=== PATIENT | female | born 1960 | race Hispanic/Latino ===

== ENCOUNTER 2019-06-06 08:07 | Emergency (ER) | payer OTHER ==
[2019-06-06] MEDS ORDERED: KETOROLAC TROMETHAMINE 60 MG/2 ML VIAL ONE (09:28)
[2019-06-06 09:46] LABS: APPEARANCE,URINE Clear (CLEAR); BILIRUBIN,URINE Negative (NEGATIVE); COLOR,URINE Yellow (YELLOW); GLUCOSE, URINE (UA) Negative (NEGATIVE); KETONES,URINE Negative (NEGATIVE); LEUKOCYTE ESTERASE ,URINE Trace (NEGATIVE); NITRATE,URINE Negative (NEGATIVE); OCCULT BLOOD,URINE Negative (NEGATIVE); PROTEIN,URINE Negative (NEGATIVE); UROBILINOGEN,URINE 0.2 mg/dL (0.2-1.0)
[2019-06-06 09:57] LABS: RBC,URINE 0-1 /HPF (0-1)
[2019-06-06 09:58] LABS: BACTERIA,URINE Few /HPF (None Seen); SQUAMOUS EPITHELIAL CELL,UR Few /HPF (0-2)
[2019-06-06 10:02] LABS: CALCIUM OXALATE CRYSTALS,UR Rare /LPF (None Seen)
== END 2019-06-06 11:24 | disposition home or self-care (01) ==
LOC: EDH 08:07
DX: M54.5 Low back pain (principal); E11.9 Type 2 diabetes mellitus without complications
CPT/HCPCS: 72131; 81001; 96372; 99284; J1885

== ENCOUNTER 2024-07-02 07:39 | Emergency (ER) | payer SELFPAY ==
[~2024-07-02] VITALS: Ht 152.4 cm; Wt 76.2 kg
[2024-07-02 07:44] VITALS: TEMP 98.5
--- NOTE | 2024-07-02 07:45 | NUR ---
PT JUST NOW PLACED IN MY ED BED 19
--- NOTE | 2024-07-02 08:19 | ERN ---
General Chief Complaint: Abdominal Pain Stated Complaint: ABD PAIN Time Seen by MD: 07:43 Source: patient History of Present Illness Initial Comments PATIENT IS A 64-YEAR-OLD FEMALE COMING IN TO BE EVALUATED FOR ABDOMINAL PAIN. PATIENT STATES THAT SHE HAS BEEN HAVING EPIGASTRIC PAIN FOR FOUR DAYS. PATIENT WAS STAYED IN THE OTHER HOSPITAL AND WAS GIVEN MEDICATION BUT STATES IT DID NOT WORKED. PATIENT WAS HERE FOR FURTHER EVALUATION. Allergies: Coded Allergies: No Known Drug Allergies (Unverified Allergy, Unknown, 06/06/19) Past Medical History Past Medical History: Diabetes-Type II Past Surgical History: None ROS Dictation CONSTITUTIONAL: NO CHILLS, NO FEVER, NO WEAKNESS, NO DIAPHORESIS, NO MALAISE. HEAD/FACE: NO SIGNS OF TRAUMA. EENT: NO EYE PAIN, NO BLURRED VISION, NO TEARING, NO DOUBLE VISION, NO EAR PAIN, NO EAR DISCHARGE, NO NOSE PAIN, NO NASAL CONGESTION, NO THROAT PAIN, NO THROAT SWELLING, NO MOUTH PAIN. RESPIRATORY: NO COUGH, NO ORTHOPNEA, NO SOB, NO STRIDOR, NO WHEEZING. CARDIOVASCULAR: NO CHEST PAIN, NO EDEMA, NO PALPITATIONS, NO SYNCOPE. GASTROINTESTINAL/ABDOMINAL: ABDOMINAL PAIN, NO CONSTIPATION, NO DIARRHEA, NO NAUSEA, NO VOMITING. GENITOURINARY: NO ABNORMAL DISCHARGE, NO DYSURIA, NO FREQUENT URINATION, NO HEMATURIA. NO COMPLAINTS OF PAIN IN THE GENITALS. MUSCULOSKELETAL: NO BACK PAIN, NO GOUT, NO JOINT PAIN, NO JOINT SWELLING, NO MUSCLE PAIN, NO MUSCLE STIFFNESS, NO NECK PAIN. INTEGUMENTARY: NO CHANGE IN COLOR, NO CHANGE IN HAIR/NAILS, NO DRYNESS, NO LESION, NO LUMPS, NO RASH. NEUROLOGICAL/PSYCH: NO ANXIETY, NOT DEPRESSED, NO EMOTIONAL PROBLEM, NO HEADACHE, NO NUMBNESS, NO PRE-EXISTING DEFICIT, NO HISTORY OF SEIZURES, NO TREMORS, NO WEAKNESS. HEMATOLOGIC/LYMPHATIC: NOT ANEMIC, NO HISTORY OF BLOOD CLOTS, NO APPARENT BLEEDING, NO BRUISING, GLANDS NOT SWOLLEN. ALL SYSTEMS NEGATIVE, EXCEPT NOTED. Physical Exam Physical Exam Dictation VITAL SIGNS: REVIEWED. GENERAL APPEARANCE: ALERT, ORIENTED X3, NO ACUTE DISTRESS, OBESE. HEAD AND FACE: NON-TRAUMATIC. EYES: PERRL, PINK CONJUNCTIVAS, EYELID NO TRAUMA, ANTERIOR CHAMBER CLEAR. EARS: PINNAS INTACT AND NO SIGNS OF TRAUMA OR ERYTHEMA. EAR CANALS CLEAR AND NO DISCHARGE. TMS NO ERYTHEMA. NOSE: NO DISCHARGE, NO BLEEDING. OROPHARYNX: MOUTH NORMAL, TEETH NO CARIES, TONGUE PINK. PHARYNX CLEAR, NO ERYTHEMA. TONSILS NO EXUDATES, NO ABSCESSES NOTED. MUCOUS MEMBRANE MOIST. NECK: SUPPLE, NON-TENDER, NO THYROMEGALY, NO MASSES, NO JVD, NO BRUITS. BREAST: DEFERRED. CHEST: NO TENDERNESS, NO CREPITUS, NO PARADOXICAL MOVEMENT, NO RETRACTIONS. LUNGS: CLEAR, WELL-VENTILATED, SYMMETRIC, NO RALES, NO WHEEZING, NO RHONCHI, NO STRIDOR, GOOD BREATH SOUNDS BILATERALLY. HEART: REGULAR RATE, REGULAR RHYTHM, NO MURMUR, NO GALLOPS. VASCULAR: NO PERIPHERAL EDEMA. ABDOMEN: SOFT, POSITIVE BOWEL SOUNDS, NONDISTENDED, NO GUARDING, EPIGASTRIC TENDER, NO REBOUND, NO MASSES NO HEPATOMEGALY, NO SPLENOMEGALY, NO BARONE'S SIGN, NO HERNIAS. RECTAL: DEFERRED. GENITAL: DEFERRED. NEUROLOGICAL: NORMAL SPEECH, GROSS MOTOR FUNCTION INTACT, GROSS SENSORY FUNCTION INTACT. MUSCULOSKELETAL: NECK NONTENDER, FULL RANGE OF MOTION, BACK NONTENDER, FULL RANGE OF MOTION. EXTREMITIES: NONTENDER, FULL RANGE OF MOTION. SKIN: COLOR PINK, DRY, NO TURGOR, NO RASH, NO LACERATIONS, NO ABRASIONS, NO CONTUSIONS. LYMPHATICS: DEFERRED. Results Laboratory and Microbiology Lab and Micro Result Laboratory Tests Test 07/02/24 08:02 07/02/24 08:38 White Blood Count 11.9 K/uL (4.8-10.8) H Red Blood Count 4.48 MIL/uL (4.00-5.50) Hemoglobin 10.3 g/dL (12.0-16.0) L Hematocrit 34.3 % (36-48) L Mean Corpuscular Volume 76.6 fL (79-99) L Mean Corpuscular Hemoglobin 23.0 pg (27.0-33.0) L Mean Corpuscular Hemoglobin Concent 30.0 g/dL (32.0-36.0) L Red Cell Distribution Width 17.4 % (11.0-15.5) H Platelet Count 509 K/uL (130-400) H Mean Platelet Volume 10.8 fL (7.5-10.5) H Immature Granulocyte % (Auto) 0.3 % (0-1) Neutrophils (%) (Auto) 69.1 % (40.0-77.0) Lymphocytes (%) (Auto) 22.6 % (21.0-51.0) Monocytes (%) (Auto) 5.5 % (3.0-13.0) Eosinophils (%) (Auto) 1.8 % (0.0-8.0) Basophils (%) (Auto) 0.7 % (0.0-5.0) Neutrophils # (Auto) 8.2 K/uL (1.8-7.7) H Lymphocytes # (Auto) 2.7 K/uL (1.0-4.8) Monocytes # (Auto) 0.7 K/uL (0.1-1.0) Eosinophils # (Auto) 0.21 K/uL (0.00-0.70) Basophils # (Auto) 0.08 K/uL (0.00-0.20) Absolute Immature Granulocyte (auto 0.04 K/uL (0-1) Nucleated Red Blood Cells 0.0 % (0.0-0.19) Red Blood Cell Morphology See comments Sodium Level 140 mmol/L (136-145) Potassium Level 3.9 mmol/L (3.5-5.1) Chloride Level 98 mmol/L (101-111) L Carbon Dioxide Level 30 mmol/L (21-32) Blood Urea Nitrogen 17 mg/dL (7-18) Creatinine 0.6 mg/dL (0.5-1.0) Glomerular Filtration Rate Calc 101 mL/min (>90) Random Glucose 253 mg/dL (70-105) H Total Calcium 9.6 mg/dL (8.5-10.1) Total Bilirubin 0.4 mg/dL (0.2-1.0) Aspartate Amino Transf (AST/SGOT) 29 U/L (10-37) Alanine Aminotransferase (ALT/SGPT) 34 U/L (12-78) Alkaline Phosphatase 98 U/L (50-136) Total Creatine Kinase 42 U/L (21-232) Troponin I High Sensitivity 4 ng/L (4-50) Total Protein 8.1 g/dL (6.0-8.3) Albumin 3.8 g/dL (3.5-5.0) Lipase 56 U/L (16-77) Urine Color YELLOW (YELLOW) Urine Appearance CLEAR (CLEAR) Urine pH 7.0 (5.0-8.0) Urine Specific [place] 1.024 (1.001-1.031) Urine Protein 30 mg/dL (NEGATIVE) H Urine Glucose (UA) 300 mg/dL (NEGATIVE) H Urine Ketones 20 mg/dL (NEGATIVE) H Urine Occult Blood NEGATIVE (NEGATIVE) Urine Nitrate 2+ (NEGATIVE) H Urine Bilirubin NEGATIVE mg/dL (NEGATIVE) Urine Urobilinogen 0.2 mg/dL (0.2-1.0) Urine Leukocyte Esterase NEGATIVE Efren/uL Urine RBC 0-1 /HPF (0-1) Urine WBC 6-10 /HPF (0-1) H Urine Squamous Epithelial Cells RARE /HPF (0-2) Urine Bacteria MANY /HPF (None Seen) Urine Opiates Screen NEGATIVE (NEGATIVE) Urine Barbiturates Screen NEGATIVE (NEGATIVE) Urine Phencyclidine Screen NEGATIVE (NEGATIVE) Urine Amphetamines Screen NEGATIVE (NEGATIVE) Urine Benzodiazepines Screen NEGATIVE (NEGATIVE) Urine Cocaine Screen NEGATIVE (NEGATIVE) Urine Marijuana (THC) Screen NEGATIVE (NEGATIVE) Labs Reviewed?: Yes EKG/XRAY/US/CT/MRI EKG Comment 07/02/2024 time 8:06 a.m. Ventricular rate 105 Sinus tachycardia [place] [address] wave elevation or depression [place] [address] IMAGING REPORT Signed PATIENT: EMMA TREVIZO MR#: [id number] : 1960 SEX: F AGE: 64 LOCATION: [facility] ORDER 5 STATUS: REG ER REPORT#: [id number] SERVICE 4 REASON: EPIGASTRIC PAIN ORDERING PHYSICIAN: TYRA EDWARDS MD PROCEDURE: ABD PEL WO - CT ABDOMEN/PELVIS W/O CONTRAST CT ABDOMEN/PELVIS W/O CONTRAST HISTORY: Gastric pain COMPARISON: None TECHNIQUE: Multiple sequential axial images of the abdomen and pelvis were obtained from the dome of the diaphragm through symphysis pubis. Patient was not given contrast through intravenous route. Oral contrast was not given. FINDINGS: No pleural effusion is seen bilaterally. There is no evidence of parenchymal disease or pulmonary nodule of the visualized lower lungs. Degenerative changes of the thoracolumbar spine are present. The heart is not enlarged. The liver is borderline in size measuring 16 gallbladder is contracted. Small periumbilical hernia is seen with fat content. The liver, spleen, adrenal glands and pancreas are unremarkable. There is no evidence of hydronephrosis bilaterally. No evidence of renal stone is seen. Fecal material is seen in the colon. There are normal size retroperitoneal and mesenteric lymph nodes. No ascites is seen. Appendix is not well seen limiting evaluation. There is scoliosis. Pelvic sidewalls are symmetric bilaterally. Bladder is well distended without wall thickening. IMPRESSION: 1. No bowel obstruction is seen. No ascites is seen. CT was performed with one or more following dose reduction techniques: automated exposure control, adjustment of the mA and kv according to patient's size, or use of a iterative reconstruction technique. DICTATED BY: JIM RASMUSSEN MD DATE: 07/02/24 104 ELECTRONICALLY SIGNED BY: JIM RASMUSSEN MD DATE: 07/02/24 104 Ultrasound Comment IMAGING REPORT Signed PATIENT: EMMA TREVIZO MR#: [id number] : 1960 SEX: F AGE: 64 LOCATION: [facility] ORDER 7 STATUS: [facility] REPORT#: [id number] SERVICE 6 REASON: Adominal Pain ORDERING PHYSICIAN: TYRA EDWARDS MD PROCEDURE: ABDRUQLTD - US ABDOMINAL RUQ\LTD US ABDOMINAL RUQ\E\LTD HISTORY: Abdominal pain COMPARISON: None TECHNIQUE: Right upper quadrant abdominal ultrasound study was performed. FINDINGS: Liver measures 16 cm. The visualized portion of the pancreas is within normal limits. Liver is echogenic consistent with liver parenchymal disease. No gallstone is seen. Common duct measures 5 mm. No evidence of gallbladder wall thickening is seen. Right kidney measures 10 x 4.8 x 5 cm. No hydronephrosis is seen of the right kidney. IMPRESSION: 1. No gallstones or ductal dilatation is seen. 2. No hydronephrosis is seen. DICTATED BY: JIM RASMUSSEN MD DATE: 07/02/24 0907 ELECTRONICALLY SIGNED BY: JIM RASMUSSEN MD DATE: 07/02/24 09 MDM MDM: DIFFERENTIAL DIAGNOSIS: GASTRITIS, GASTROENTERITIS, RATIONALE: TESTS CONSIDERED AND ORDERED SECONDARY TO SHARED DECISION MAKING INCLUDE: PATIENT IS A 64-YEAR-OLD FEMALE COMING IN TO BE EVALUATED FOR EPIGASTRIC PAIN. LABORATORY WORKUP NEGATIVE FOR ACUTE FINDINGS. CT AND ULTRASOUND DID NOT DISCLOSE ACUTE FINDINGS. PATIENT WILL BE DISCHARGED WITH A DIAGNOSIS OF VIRAL GASTROENTERITIS VERSUS GASTRITIS. I DID ADVISED HER APPROPRIATE FOLLOW UP WITH PCP FOR ONGOING EVALUATION AND MANAGEMENT. ED Course Orders Procedure Category Date Status Time Vital Signs Per CPOE 07/02/24 Transmitted Routine 07:51 Saline Lock Iv CPOE 07/02/24 Transmitted 07:51 Cbc With Differential LAB 07/02/24 Complete 07:51 Urinalysis Profile LAB 07/02/24 Complete 07:51 Comprehensive LAB 07/02/24 Complete Metabolic Panel 07:57 Troponin I High LAB 07/02/24 Complete Sensitivity 07:57 Us Abdominal Ruq\Ltd US 07/02/24 Resulted 07:57 12 Lead Ekg Tracing- EKG 07/02/24 Logged Technical 07:57 Lactated Ringers PHA 07/02/24 Complete 1000ml (Lactated 08:00 Ondansetron 4mg Inj PHA 07/02/24 Complete (Zofran 4mg Inj) 08:00 Lidocaine Hcl 2% PHA 07/02/24 Complete Viscous (Lidocaine Hcl 08:00 Mag/Alum/Simeth 30ml PHA 07/02/24 Complete (Maalox Plus 30ml) 08:00 Pantoprazole 40mg Inj PHA 07/02/24 Complete (Protonix 40mg Inj 08:00 Creatine Kinase, Total LAB 07/02/24 Complete 07:57 Lipase LAB 07/02/24 Complete 08:02 Culture Urine CARA 07/02/24 In Process 09:18 Ketorolac PHA 07/02/24 Complete Tromethamine 30mg/Ml 10:00 Ct Abdomen/Pelvis W/O CT 07/02/24 Resulted Contrast 09:35 Drug Screen Urine LAB 07/02/24 Complete 09:35 Current Medications Medications (Trade) Dose Ordered Sig/Vida Route PRN Reason Start Time Stop Time Status Last Admin Dose Admin Al Hydroxide/Mg Hydroxide (MAALox PLUS 30ML) 30 ml ONCE ONCE PO 07/02/24 08:00 07/02/24 08:01 DC 07/02/24 08:32 Ketorolac Tromethamine (toRADol) 30 mg ONCE ONCE IVP 07/02/24 10:00 07/02/24 10:01 DC 07/02/24 09:46 Lactated Ringer's 1,000 ml @ 0 mls/hr ONCE ONCE IV 07/02/24 08:00 07/02/24 08:01 DC 07/02/24 08:33 Lidocaine HCl (Lidocaine HCl 2% Viscous) 10 ml ONCE ONCE PO 07/02/24 08:00 07/02/24 08:01 DC 07/02/24 08:32 Ondansetron HCl (zoFRAN 4MG INJ) 4 mg ONCE ONCE IVP 07/02/24 08:00 07/02/24 08:01 DC 07/02/24 08:32 Pantoprazole Sodium (PROTonix 40MG INJ) 40 mg ONCE ONCE IVP 07/02/24 08:00 07/02/24 08:01 DC 07/02/24 08:32 Vital Signs Date Time Temp Pulse Resp B/P (MAP) Pulse Ox O2 Delivery O2 Flow Rate FiO2 07/02/24 09:01 97 127/61 95 Room Air* 0 21 07/02/24 07:44 98.4 110 18 144/81 94 Room Air 0 DX & DISP Disposition: Discharge Departure Impression: Primary Impression: Viral gastroenteritis Additional Impression: Gastritis Condition: Stable Scripts Pantoprazole Sodium (Protonix) 40 Mg Ectab 1 TAB PO DAILY for 30 Days, #30 TAB 0 Refills Prov: TYRA EDWARDS MD 07/02/24 Additional Instructions: FOLLOW-UP WITH PRIMARY CARE PROVIDER IN 1 TO 2 DAYS. TAKE MEDICATIONS DIRECTED HERE IN THE EMERGENCY ROOM. OKAY TO CONTINUE HOME MEDICATIONS UNLESS OTHERWISE DISCUSSED DURING YOUR VISIT IN THE EMERGENCY ROOM TODAY. RETURN TO YOUR NEAREST EMERGENCY ROOM IF SYMPTOMS WORSEN OR IF THERE IS NO IMPROVEMENT. CALL 911 IF YOU NEED IMMEDIATE ASSISTANCE. TAKE TYLENOL [id number] NEEDED AND IF NO CONTRAINDICATIONS ARE PRESENT. INCREASE ORAL HYDRATION. A WOUND CULTURE OR URINE CULTURE WAS ORDERED HERE IN THE EMERGENCY ROOM DEPARTMENT PLEASE FOLLOW-UP WITH PRIMARY CARE PROVIDER AND ADVISE THEM TO GET REPEAT PORTS FROM OUR FACILITY. IF YOU HAD ANY LIVE WRAP/SPLINTS THAT WERE APPLIED HERE, PLEASE DO NOT REMOVE THEM UNTIL YOU SEE YOUR PRIMARY CARE OR SPECIALTY. REFERRALS: Referrals: SELF,REFERRAL (PCP) CORBY RUDOLPH MD Time of Disposition: 10:58 TYRA EDWARDS MD Jul 02, 2024 08:19
[2024-07-02] MEDS: ondanSETRON 4MG INJ IVP ONE (08:32)
[2024-07-02] MEDS: MAG/ALUM/SIMETH 30 ML UDCUP PO ONE (08:32)
[2024-07-02] MEDS: PANTOPrazole 40 MG/VIAL IVP ONE (08:32)
[2024-07-02] MEDS: LIDOCAINE HCL 2% VISCOUS 15 ML UDCUP PO ONE (08:32)
[2024-07-02] MEDS: LACTATED RINGERS 1000ML 1,000 ML IV ONE (08:33)
--- NOTE | 2024-07-02 08:34 | NUR ---
MEDICATION ISSUE: LR BARCODE WOULD NOT SCAN
[2024-07-02 08:36] LABS: BASOPHILS # (AUTO) 0.08 K/uL (0.00-0.20); BASOPHILS % (AUTO) 0.7 % (0.0-5.0); EOSINOPHILS # (AUTO) 0.21 K/uL (0.00-0.70); EOSINOPHILS % (AUTO) 1.8 % (0.0-8.0); HEMATOCRIT 34.3 % (36-48); IMMATURE GRANULOCYTE ABSOLUTE 0.04 K/uL (0-1); LYMPHOCYTES # (AUTO) 2.7 K/uL (1.0-4.8); LYMPHOCYTES % (AUTO) 22.6 % (21.0-51.0); MEAN CORPUSCULAR VOLUME 76.6 fL (79-99); MONOCYTES # (AUTO) 0.7 K/uL (0.1-1.0); MONOCYTES % (AUTO) 5.5 % (3.0-13.0); NEUTROPHILS # (AUTO) 8.2 K/uL (1.8-7.7); NEUTROPHILS % (AUTO) 69.1 % (40.0-77.0); PLATELET COUNT (AUTO) 509 K/uL (130-400); RED BLOOD CELL COUNT(AUTO) 4.48 MIL/uL (4.00-5.50); RED CELL DISTRIBUTION WIDTH 17.4 % (11.0-15.5); WHITE BLOOD COUNT (AUTO) 11.9 K/uL (4.8-10.8)
[2024-07-02 08:48] LABS: CREATININE 0.6 mg/dL (0.5-1.0); POTASSIUM 3.9 mmol/L (3.5-5.1)
[2024-07-02 08:53] LABS: ALBUMIN 3.8 g/dL (3.5-5.0); BILIRUBIN,TOTAL 0.4 mg/dL (0.2-1.0); TOTAL PROTEIN, SERUM 8.1 g/dL (6.0-8.3)
[2024-07-02 09:08] LABS: APPEARANCE,URINE CLEAR (CLEAR); BILIRUBIN,URINE NEGATIVE (NEGATIVE); COLOR,URINE YELLOW (YELLOW); GLUCOSE, URINE (UA) 300 mg/dL (NEGATIVE); KETONES,URINE 20 mg/dL (NEGATIVE); LEUKOCYTE ESTERASE ,URINE NEGATIVE Leu/uL (NEGATIVE); NITRATE,URINE 2+ (NEGATIVE); OCCULT BLOOD,URINE NEGATIVE (NEGATIVE); PROTEIN,URINE 30 mg/dL (NEGATIVE); UROBILINOGEN,URINE 0.2 mg/dL (0.2-1.0)
--- NOTE | 2024-07-02 09:10 | HMCIMG ---
US ABDOMINAL RUQ\E\LTD HISTORY: Abdominal pain COMPARISON: None TECHNIQUE: Right upper quadrant abdominal ultrasound study was performed. FINDINGS: Liver measures 16 cm. The visualized portion of the pancreas is within normal limits. Liver is echogenic consistent with liver parenchymal disease. No gallstone is seen. Common duct measures 5 mm. No evidence of gallbladder wall thickening is seen. Right kidney measures 10 x 4.8 x 5 cm. No hydronephrosis is seen of the right kidney. IMPRESSION: 1. No gallstones or ductal dilatation is seen. 2. No hydronephrosis is seen.
[2024-07-02 09:16] LABS: ADD UA MICROSCOPIC YES
[2024-07-02 09:18] LABS: BACTERIA,URINE MANY /HPF (None Seen); MUCUS,URINE FEW LPF (None Seen); RBC,URINE 0-1 /HPF (0-1); SQUAMOUS EPITHELIAL CELL,UR RARE /HPF (0-2)
[2024-07-02] MEDS: ketOROlac 30MG VIAL (30MG/ML) IVP ONE (09:46)
--- NOTE | 2024-07-02 10:20 | NUR ---
PT JUST NOW BEING TAKEN TO CT SCAN
[2024-07-02 10:28] LABS: AMPHET/METH SCREEN,URINE NEGATIVE (NEGATIVE); BARBITURATE SCREEN, URINE NEGATIVE (NEGATIVE); BENZODIAZEPINES SCREEN,URINE NEGATIVE (NEGATIVE); CANNABINOID SCREEN,URINE NEGATIVE (NEGATIVE); COCAINE SCREEN,URINE NEGATIVE (NEGATIVE); OPIATE SCREEN,URINE NEGATIVE (NEGATIVE); PHENCYCLIDINE SCREEN,URINE NEGATIVE (NEGATIVE)
--- NOTE | 2024-07-02 10:28 | NUR ---
PT JUST NOW RETURNED FROM CT SCAN
--- NOTE | 2024-07-02 10:46 | HMCIMG ---
CT ABDOMEN/PELVIS W/O CONTRAST HISTORY: Gastric pain COMPARISON: None TECHNIQUE: Multiple sequential axial images of the abdomen and pelvis were obtained from the dome of the diaphragm through symphysis pubis. Patient was not given contrast through intravenous route. Oral contrast was not given. FINDINGS: No pleural effusion is seen bilaterally. There is no evidence of parenchymal disease or pulmonary nodule of the visualized lower lungs. Degenerative changes of the thoracolumbar spine are present. The heart is not enlarged. The liver is borderline in size measuring 16 gallbladder is contracted. Small periumbilical hernia is seen with fat content. The liver, spleen, adrenal glands and pancreas are unremarkable. There is no evidence of hydronephrosis bilaterally. No evidence of renal stone is seen. Fecal material is seen in the colon. There are normal size retroperitoneal and mesenteric lymph nodes. No ascites is seen. Appendix is not well seen limiting evaluation. There is scoliosis. Pelvic sidewalls are symmetric bilaterally. Bladder is well distended without wall thickening. IMPRESSION: 1. No bowel obstruction is seen. No ascites is seen. CT was performed with one or more following dose reduction techniques: automated exposure control, adjustment of the mA and kv according to patient's size, or use of a iterative reconstruction technique.
[2024-07-02] MEDS ORDERED: PANT40TA55 PO (11:02)
[2024-07-02 11:06] VITALS: BP 113/44; PULSE 94; RESP 17; O2SAT 97
--- NOTE | 2024-07-03 06:38 | EKG ---
[facility] [place], [place] Test Date: 2024-07-02 Test Time: 08:06:01 Pat Name: EMMA TREVIZO Department: 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
== END 2024-07-02 11:19 | disposition home or self-care (01) ==
LOC: EDH 07:39
DX: A08.4 Viral intestinal infection, unspecified (principal); K29.70 Gastritis, unspecified, without bleeding; E11.9 Type 2 diabetes mellitus without complications
CPT/HCPCS: 99285; 74176; 96374; 76705; 96361; 96375; 82550; 84484; 80053; 80305; 83690; 85025; 87086 ×2; 87186; 81001; 36415; 93005; J1885; J7120; J2405; J2470